=== PATIENT | male | born 1995 | race Caucasian/White ===

== ENCOUNTER 2016-12-27 14:20 | Emergency (ER) | payer OTHER ==
[2016-12-27 14:39] VITALS: BP 185/93
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
== END 2016-12-27 15:40 | disposition home or self-care (01) ==
LOC: KA.ED 14:20
DX: S80.01XA Contusion of right knee, initial encounter (principal); Z91.030 Bee allergy status; V43.52XA Car driver injured in collision with other type car in traffic accident, initial encounter; Y92.488 Other paved roadways as the place of occurrence of the external cause
CPT/HCPCS: 73562-RT; 99284

== ENCOUNTER 2019-01-06 18:37 | Emergency (ER) | payer SELFPAY ==
--- NOTE | 2019-01-06 18:57 | EDM.PDOC ---
ED HPI GENERAL MEDICAL PROBLEM - General Chief Complaint: General Stated Complaint: HIGH FEVER, COUGH Time Seen by Provider: 01/06/19 18:49 Source of Information: Reports: Patient History Limitations: Reports: No Limitations - History of Present Illness INITIAL COMMENTS - FREE TEXT/NARRATIVE: Patient is a 23-year-old gentleman who presents to the emergency department this evening with a complaint of fever and cough. Patient states that symptoms began 2 days ago and has become worse. Patient states that the cough is productive for thick yellow sputum and complains of a sore throat. Patient denies chest pain, shortness of breath, headache, stiff neck, nausea, vomiting, diarrhea, and also specific contact with sick individuals, Onset: Gradual Onset Date: 01/04/19 Duration: Day(s):, Getting Worse Severity: Mild Improves with: Reports: None Worsens with: Reports: None Associated Symptoms: Reports: Cough, cough w sputum, Fever/Chills. 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 - Related Data Allergies Allergy/AdvReac Type Severity Reaction Status Date / Time No Known Drug Allergies Allergy Cannot Verified 01/06/19 19:01 Remember venom-honey bee Allergy Swelling Verified 01/06/19 19:01 [bee venom (honey bee)] Home Meds: Home Meds Azithromycin [Zithromax] 500 mg PO DAILY #4 tab 01/06/19 [Rx] Lisinopril 20 mg PO DAILY 01/06/19 [History] Past Medical History - Past Health History Medical/Surgical History: Denies Medical/Surgical History Cardiovascular History: Reports: Hypertension Respiratory History: Reports: Asthma, Other (See Below) Other Respiratory History: Asthma when young Gastrointestinal History: Reports: None Genitourinary History: Reports: None Musculoskeletal History: Reports: Gout Neurological History: Reports: Concussion Psychiatric History: Reports: None Endocrine/Metabolic History: Reports: Obesity/BMI 30+ Hematologic History: Reports: None Dermatologic History: Reports: None - Infectious Disease History Infectious Disease History: Reports: Chicken Pox - Past Surgical History Cardiovascular Surgical History: Reports: None Respiratory Surgical History: Reports: None GI Surgical History: Reports: Hernia Repair/Other Male Surgical History: Reports: None Endocrine Surgical History: Reports: None Neurological Surgical History: Reports: None Musculoskeletal Surgical History: Reports: Other (See Below) Other Musculoskeletal Surgeries/Procedures:: tighten muscles on right knee Dermatological Surgical History: Reports: None Social & Family History - Family History Family Medical History: Noncontributory - Caffeine Use Caffeine Use: Reports: Coffee, Soda - Living Situation & Occupation Living situation: Reports: Single Occupation: Student ED ROS GENERAL - Review of Systems Review Of Systems: ROS reveals no pertinent complaints other than HPI. Constitutional: Reports: Fever, Chills HEENT: Reports: Throat Pain Respiratory: Reports: Cough, Sputum Cardiovascular: Reports: No Symptoms Endocrine: Reports: No Symptoms GI/Abdominal: Reports: No Symptoms : Reports: No Symptoms Musculoskeletal: Reports: No Symptoms Skin: Reports: No Symptoms Neurological: Reports: No Symptoms Psychiatric: Reports: No Symptoms Hematologic/Lymphatic: Reports: No Symptoms Immunologic: Reports: No Symptoms ED EXAM, GENERAL - Physical Exam Exam: See Below Exam Limited By: No Limitations General Appearance: Alert, WD/WN, No Apparent Distress Eye Exam: Bilateral Eye: Normal Inspection Ears: Normal External Exam, Normal Canal, Normal TMs Nose: Normal Inspection, Normal Mucosa, No Blood Throat/Mouth: No Airway Compromise, Inflammation, Other (Pharyngeal erythema without exudates) Neck: Lymphadenopathy (L), Lymphadenopathy (R) Respiratory/Chest: No Respiratory Distress, Lungs Clear, Normal Breath Sounds Cardiovascular: No Murmur, Tachycardia GI/Abdominal: Normal Bowel Sounds, Soft, Non-Tender, No Organomegaly, No Distention, No Abnormal Bruit, No Mass Back Exam: Normal Inspection. No: CVA Tenderness (L), CVA Tenderness (R) Extremities: Normal Inspection Neurological: Alert, Oriented, Normal Cognition Psychiatric: Normal Affect, Normal Mood Skin Exam: Warm, Dry, Intact, Normal Color, No Rash Lymphatic: Adenopathy Course - Vital Signs Last Recorded V/S: Last Vital Signs Temp 100.8 F H 01/06/19 19:50 Pulse 108 H 01/06/19 19:50 Resp 16 01/06/19 19:50 BP 140/84 01/06/19 19:50 Pulse Ox 91 L 01/06/19 19:50 - Orders/Labs/Meds Orders: Active Orders 24 hr Category Date Time Status Peripheral IV Care [RC] . DIRECTED Care 01/06/19 18:58 Ordered Sodium Chloride 0.9% @ 999 MLS/HR (1000ml) Med 01/06/19 18:58 Ordered Sodium Chloride 0.9% [Normal Saline] 1,000 ml IV .BOLUS Sodium Chloride 0.9% [Saline Flush] Med 01/06/19 18:58 Ordered 10 ml FLUSH Q8HR PRN Peripheral IV Insertion Adult [OM.PC] Routine Oth 01/06/19 18:58 Ordered Medication Orders Sodium Chloride (Normal Saline) 1,000 mls @ 999 mls/hr IV .BOLUS ONE Stop: 01/06/19 19:58 Last Admin: 01/06/19 19:07 Dose: 999 mls/hr Sodium Chloride (Saline Flush) 10 ml FLUSH Q8HR PRN PRN Reason: keep vein open Labs: Laboratory Tests 01/06/19 01/06/19 Range/Units 18:59 18:59 WBC 7.92 (5.00-10.00) 10^3/uL RBC 5.07 (4.50-6.00) 10^6/uL Hgb 15.7 (13.0-17.0) g/dL Hct 44.7 (40.0-52.0) % MCV 88.2 (82.0-92.0) fL MCH 31.0 (27.0-31.0) pg MCHC 35.1 (32.0-36.0) g/dL RDW 11.5 (11.5-14.5) % Plt Count 245 (150-400) 10^3/uL MPV 10.7 H (7.4-10.4) fL Immature Gran % (Auto) 0.1 (0.0-5.0) % Neut % (Auto) 64.8 (50.0-70.0) % Lymph % (Auto) 20.7 (20.0-40.0) % Andrews % (Auto) 11.0 H (2.0-8.0) % Eos % (Auto) 3.0 (1.0-3.0) % Baso % (Auto) 0.4 (0.0-1.0) % Immature Gran # (Auto) 0.01 (0.00-0.50) 10^3/uL Neut # (Auto) 5.13 (2.50-7.00) 10^3/uL Lymph # (Auto) 1.64 (1.00-4.00) 10^3/uL Andrews # (Auto) 0.87 H (0.10-0.80) 10^3/uL Eos # (Auto) 0.24 (0.10-0.30) 10^3/uL Baso # (Auto) 0.03 (0.00-0.10) 10^3/uL Sodium 135 L (136-145) mmol/L Potassium 4.0 (3.3-5.3) mmol/L Chloride 98 (98-115) mmol/L Carbon Dioxide 27.8 (21.0-32.0) mmol/L Anion Gap 13.2 (5-15) mmol/L BUN 12 (6-25) mg/dL Creatinine 0.91 (0.51-1.17) mg/dL Est Cr Clr Drug Dosing 117.03 mL/min Estimated GFR (MDRD) > 60 mL/min Glucose 107 H (75 - 99) mg/dL Calcium 9.4 (8.7-10.3) mg/dL Monoscreen Negative (NEGATIVE) Meds: Medications Generic Name Dose Route Start Last Admin Trade Name Freq PRN Reason Stop Dose Admin Sodium Chloride 1,000 mls @ 999 mls/hr 01/06/19 18:58 01/06/19 19:07 Normal Saline IV 01/06/19 19:58 999 mls/hr .BOLUS ONE Administration Sodium Chloride 10 ml 01/06/19 18:58 Saline Flush FLUSH Q8HR PRN keep vein open Discontinued Medications Generic Name Dose Route Start Last Admin Trade Name Freq PRN Reason Stop Dose Admin Azithromycin 500 mg 01/06/19 19:42 Zithromax PO 01/06/19 19:43 ONETIME ONE Ceftriaxone Sodium 1 gm 01/06/19 19:42 Rocephin IVPUSH 01/06/19 19:43 ONETIME ONE Ibuprofen 600 mg 01/06/19 18:58 01/06/19 19:07 Motrin PO 01/06/19 18:59 600 mg ONETIME ONE Administration - Radiology Interpretation Free Text/Narrative:: Chest x-ray shows suspicion for infiltrate of right lower lobe - Re-Assessments/Exams Free Text/Narrative Re-Assessment/Exam: 01/06/19 19:50 Patient feeling better, temperature down to 100, vital signs stable, 1 g Rocephin IV, 500 mg Zithromax given in ER. Prescription for Zithromax 500 mg daily for 2 more days given. Patient will follow-up with PCP in 2 days Departure - Departure Time of Disposition: 19:49 Disposition: Home, Self-Care 01 Condition: Good Clinical Impression: Fever Qualifiers: Fever type: unspecified Qualified Code(s): R50.9 - Fever, unspecified Pneumonia Qualifiers: Pneumonia type: due to unspecified organism Laterality: right Lung location: lower lobe of lung Qualified Code(s): J18.1 - Lobar pneumonia, unspecified organism - Discharge Information Prescriptions: Azithromycin [Zithromax] 500 mg PO DAILY #4 tab Instructions: Fever, Adult, Community-Acquired Pneumonia, Adult, [id number] Referrals: Diane Porras MD [Primary Care Provider] - Forms: ED Department Discharge Additional Instructions: Follow-up at clinic in next 2-3 days. Return to the emergency department sooner if symptoms continue or worsen. - My Orders Last 24 Hours: My Active Orders 01/06/19 18:58 Peripheral IV Care [RC] . DIRECTED Sodium Chloride 0.9% @ 999 MLS/HR (1000ml) Sodium Chloride 0.9% [Normal Saline] 1,000 ml IV .BOLUS Sodium Chloride 0.9% [Saline Flush] 10 ml FLUSH Q8HR PRN Peripheral IV Insertion Adult [OM.PC] Routine - Assessment/Plan Last 24 Hours: My Active Orders 01/06/19 18:58 Peripheral IV Care [RC] . DIRECTED Sodium Chloride 0.9% @ 999 MLS/HR (1000ml) Sodium Chloride 0.9% [Normal Saline] 1,000 ml IV .BOLUS Sodium Chloride 0.9% [Saline Flush] 10 ml FLUSH Q8HR PRN Peripheral IV Insertion Adult [OM.PC] Routine Assessment:: Pneumonia Plan: Follow-up with PCP in 2 days
[2019-01-06] MEDS ORDERED: Ibuprofen 600 MG Tab PO ONE (18:58)
[2019-01-06] MEDS ORDERED: Sodium Chloride 0.9% 1,000 ML IV ONE (18:58)
[2019-01-06] MEDS ORDERED: Sodium Chloride 0.9% 10 ML Syringe FLUSH PRN (18:58)
[2019-01-06 19:36] LABS: ANION GAP 13.2 mmol/L (5-15); CHLORIDE,CL 98 mmol/L (98-115); SODIUM,NA 135 mmol/L (136-145)
[2019-01-06] MEDS ORDERED: Azithromycin 250 MG Tab PO ONE (19:42)
[2019-01-06] MEDS ORDERED: cefTRIAXone 1 GM Vial IVPUSH ONE (19:42)
--- NOTE | 2019-01-06 19:45 | CR ---
[id number] RAD/RAD Chest PA And Lateral EXAM: RAD Chest PA And Lateral INDICATION: URI COMPARISON: July 2018. DISCUSSION: Cardiomediastinal silhouette is stable in size and contour. No infiltrate, effusion, pneumothorax, or edema. IMPRESSION: Negative examination of the chest. Kermit Jimenez MD 01/06/19 1943 Thank you for allowing us to participate in the care of your patient.
[2019-01-06 19:53] VITALS: BP 140/84
== END 2019-01-06 20:30 | disposition home or self-care (01) ==
LOC: KA.ED 18:37
DX: J18.1 Lobar pneumonia, unspecified organism (principal); I10 Essential (primary) hypertension; Z79.899 Other long term (current) drug therapy; Z91.030 Bee allergy status
CPT/HCPCS: 36415; 71046; 80048; 85025; 86308; 87804; 96361; 96374; 99283; 99283-25; A9270-GY; J0696; J7030

== ENCOUNTER 2019-05-10 01:26 | Emergency (ER) | payer BC ==
[2019-05-10 01:31] VITALS: BP 155/87; PULSE 111
[2019-05-10] MEDS ORDERED: Oxymetazoline 0.05% Nasal Spray 15 ML Bottle NAS ONE (01:40)
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
== END 2019-05-10 02:35 | disposition home or self-care (01) ==
LOC: KA.ED 01:26
DX: R04.0 Epistaxis (principal); I10 Essential (primary) hypertension; E66.9 Obesity, unspecified; Z79.899 Other long term (current) drug therapy; Z91.030 Bee allergy status
CPT/HCPCS: 99283; A9270

== ENCOUNTER 2019-05-16 14:32 | Emergency (ER) | payer BC ==
[2019-05-16 14:44] VITALS: BP 151/74; PULSE 84
[2019-05-16] MEDS ORDERED: methylPREDNISolone Sodium Succinate 125 MG/2 ML SDV IM ONE (14:45)
[2019-05-16] MEDS ORDERED: Acyclovir 400 MG Tab PO ONE ×2 (14:45→14:47)
--- NOTE | 2019-05-16 14:53 | EDM.PDOC ---
ED HPI GENERAL MEDICAL PROBLEM - General Chief Complaint: General Stated Complaint: RASH ON BACK AND LEGS Time Seen by Provider: 05/16/19 14:45 Source of Information: Reports: Patient History Limitations: Reports: No Limitations - History of Present Illness INITIAL COMMENTS - FREE TEXT/NARRATIVE: Patient is a 23-year-old gentleman who presents to the emergency department this afternoon with a complaint of rash to right lower back and right thigh. Patient states that it's been going on for about 4-5 days. Patient states he noticed it when he went to the chiropractor a few days ago. Rash is gradually worsening and is very itchy. Patient denies any similar rash like this in the past, fever, immunocompromise status, shortness of breath, tongue swelling, testicular or penile involvement, or any recent medication changes. Onset: Gradual Duration: Day(s): Location: Reports: Back, Lower Extremity, Right Quality: Reports: Burning Severity: Mild Improves with: Reports: None Worsens with: Reports: None Associated Symptoms: Reports: No Other Symptoms. Denies: Fever/Chills, Nausea/ Vomiting - Related Data Allergies Allergy/AdvReac Type Severity Reaction Status Date / Time No Known Drug Allergies Allergy Cannot Verified 05/16/19 14:38 Remember venom-honey bee Allergy Swelling Verified 05/16/19 14:38 [bee venom (honey bee)] Home Meds: Home Meds Lisinopril 20 mg PO DAILY 01/06/19 [History] Acyclovir 800 mg PO TID #21 tablet 05/16/19 [Rx] Past Medical History - Past Health History Medical/Surgical History: Denies Medical/Surgical History Cardiovascular History: Reports: Hypertension Respiratory History: Reports: Asthma, Other (See Below) Other Respiratory History: Asthma when young Gastrointestinal History: Reports: None Genitourinary History: Reports: None Musculoskeletal History: Reports: Gout Neurological History: Reports: Concussion Psychiatric History: Reports: None Endocrine/Metabolic History: Reports: Obesity/BMI 30+ Hematologic History: Reports: None Oncologic (Cancer) History: Reports: None Dermatologic History: Reports: None - Infectious Disease History Infectious Disease History: Reports: Chicken Pox, Shingles - Past Surgical History Head Surgeries/Procedures: Reports: None Cardiovascular Surgical History: Reports: None Respiratory Surgical History: Reports: None GI Surgical History: Reports: Hernia Repair/Other Male Surgical History: Reports: None Endocrine Surgical History: Reports: None Neurological Surgical History: Reports: None Musculoskeletal Surgical History: Reports: Other (See Below) Other Musculoskeletal Surgeries/Procedures:: tighten muscles on right knee Dermatological Surgical History: Reports: None Social & Family History - Family History Family Medical History: Noncontributory - Tobacco Use Smoking Status *Q: Never Smoker - Caffeine Use Caffeine Use: Reports: None - Recreational Drug Use Recreational Drug Use: No - Living Situation & Occupation Living situation: Reports: Single Occupation: Student ED ROS GENERAL - Review of Systems Review Of Systems: ROS reveals no pertinent complaints other than HPI. Constitutional: Reports: No Symptoms. Denies: Fever HEENT: Reports: No Symptoms Respiratory: Reports: No Symptoms Cardiovascular: Reports: No Symptoms Endocrine: Reports: No Symptoms GI/Abdominal: Reports: No Symptoms : Reports: No Symptoms Musculoskeletal: Reports: No Symptoms Skin: Reports: Rash Neurological: Reports: No Symptoms Psychiatric: Reports: No Symptoms Hematologic/Lymphatic: Reports: No Symptoms Immunologic: Reports: No Symptoms ED EXAM, GENERAL - Physical Exam Exam: See Below Exam Limited By: No Limitations General Appearance: Alert, WD/WN, No Apparent Distress Eye Exam: Bilateral Eye: Normal Inspection Ears: Normal External Exam Nose: Normal Inspection Throat/Mouth: Normal Inspection, Normal Oropharynx, No Airway Compromise Head: Atraumatic, Normocephalic Neck: Normal Inspection, Supple. No: Lymphadenopathy (L), Lymphadenopathy (R) Respiratory/Chest: No Respiratory Distress, Lungs Clear, Normal Breath Sounds, No Accessory Muscle Use, Chest Non-Tender Cardiovascular: Regular Rate, Rhythm, No Murmur Back Exam: Normal Inspection Extremities: Normal Inspection Neurological: Alert, Oriented, Normal Cognition Psychiatric: Normal Affect, Normal Mood Skin Exam: Warm, Dry, Intact, Normal Color, Rash (Right lower back and right anterior thigh with red swollen plaques, erythematous base of vesicle groups varying in size with some crusting.), Zoster-Like Rash Lymphatic: No Adenopathy Course - Vital Signs Last Recorded V/S: Last Vital Signs Temp 98.9 F 05/16/19 14:43 Pulse 84 05/16/19 14:43 Resp 16 05/16/19 14:43 BP 151/74 H 05/16/19 14:43 Pulse Ox 98 05/16/19 14:43 - Orders/Labs/Meds Orders: Active Orders 24 hr Category Date Time Status Acyclovir [Zovirax] Med 05/16/19 14:47 Once 3,200 mg PO ONETIME ONE Meds: Medications Discontinued Medications Generic Name Dose Route Start Last Admin Trade Name Oswaldo ABREU Reason Stop Dose Admin Acyclovir 800 mg 05/16/19 14:45 Zovirax PO 05/16/19 14:46 ONETIME ONE Methylprednisolone Sodium Succinate 125 mg 05/16/19 14:45 Solu-Medrol IM 05/16/19 14:46 ONETIME ONE - Re-Assessments/Exams Free Text/Narrative Re-Assessment/Exam: 05/16/19 14:56 Patient afebrile, vital signs stable, appears nontoxic. Patient given 125 mg IM Solu-Medrol, and 800 mg acyclovir in the emergency department. Patient will be continued on 800 mg acyclovir 3 times a day for 7 days. Departure - Departure Time of Disposition: 14:58 Disposition: Home, Self-Care 01 Condition: Good Clinical Impression: Herpes zoster Qualifiers: Herpes zoster complications: without complications Qualified Code(s): B02.9 - Zoster without complications - Discharge Information Instructions: Shingles, [id number] Referrals: PCP,None [Primary Care Provider] - Merry Leong PA-C [Physician] - Additional Instructions: Follow up with Merry in 3-5 days. Return to emergency room sooner if symptoms continue or worsen. Take medication as directed. - My Orders Last 24 Hours: My Active Orders 05/16/19 14:47 Acyclovir [Zovirax] 3,200 mg PO ONETIME ONE - Assessment/Plan Last 24 Hours: My Active Orders 05/16/19 14:47 Acyclovir [Zovirax] 3,200 mg PO ONETIME ONE Assessment:: Herpes zoster Plan: Follow-up at clinic
== END 2019-05-16 15:02 | disposition home or self-care (01) ==
LOC: KA.ED 14:32
DX: B02.9 Zoster without complications (principal); I10 Essential (primary) hypertension; E66.9 Obesity, unspecified; Z79.899 Other long term (current) drug therapy; Z91.030 Bee allergy status
CPT/HCPCS: 96372; 99282; A9270; J2930

== ENCOUNTER 2019-06-19 09:49 | Emergency (ER) | payer BC ==
[2019-06-19 10:01] VITALS: BP 155/86
[2019-06-19] MEDS: Lidocaine 1% 20 ML MDV INJECT ONE (10:40)
--- NOTE | 2019-06-19 10:56 | EDM.PDOC ---
ED HPI GENERAL MEDICAL PROBLEM - General Chief Complaint: General Stated Complaint: CUT FINGER Time Seen by Provider: 06/19/19 10:50 Source of Information: Reports: Patient History Limitations: Reports: No Limitations - History of Present Illness INITIAL COMMENTS - FREE TEXT/NARRATIVE: Patient is a 23-year-old gentleman who presents to the emergency department this afternoon with a complaint of laceration to left thumb. Patient states he accidentally cut left thumb on sharp piece of glass. No glass fragmentation or suspicion for foreign body. Patient denies any other injury. Patient is not up -to-date with tetanus and will receive today in the ER. Onset: Today, Sudden Onset Date: 06/19/19 Onset Time: 09:30 Duration: Minutes: Location: Reports: Upper Extremity, Left Severity: Mild Improves with: Reports: None Worsens with: Reports: None Context: Reports: Trauma Associated Symptoms: Reports: No Other Symptoms - Related Data Allergies Allergy/AdvReac Type Severity Reaction Status Date / Time venom-honey bee Allergy Swelling Verified 06/19/19 10:02 [bee venom (honey bee)] Home Meds: Home Meds Lisinopril 20 mg PO DAILY 01/06/19 [History] Past Medical History - Past Health History Medical/Surgical History: Denies Medical/Surgical History Cardiovascular History: Reports: Hypertension Respiratory History: Reports: Asthma, Other (See Below) Other Respiratory History: Asthma when young Gastrointestinal History: Reports: None Genitourinary History: Reports: None Musculoskeletal History: Reports: Gout Neurological History: Reports: Concussion Psychiatric History: Reports: None Endocrine/Metabolic History: Reports: Obesity/BMI 30+ Hematologic History: Reports: None Oncologic (Cancer) History: Reports: None Dermatologic History: Reports: None - Infectious Disease History Infectious Disease History: Reports: Chicken Pox, Shingles - Past Surgical History Head Surgeries/Procedures: Reports: None Cardiovascular Surgical History: Reports: None Respiratory Surgical History: Reports: None GI Surgical History: Reports: Hernia Repair/Other Male Surgical History: Reports: None Endocrine Surgical History: Reports: None Neurological Surgical History: Reports: None Musculoskeletal Surgical History: Reports: Other (See Below) Other Musculoskeletal Surgeries/Procedures:: tighten muscles on right knee Dermatological Surgical History: Reports: None Social & Family History - Family History Family Medical History: Noncontributory - Tobacco Use Smoking Status *Q: Never Smoker Second Hand Smoke Exposure: Yes - Caffeine Use Caffeine Use: Reports: Coffee, Soda, Tea - Alcohol Use Days Per Week of Alcohol Use: 1 Number of Drinks Per Day: 3 Total Drinks Per Week: 3 - Recreational Drug Use Recreational Drug Use: No - Living Situation & Occupation Living situation: Reports: Single Occupation: Student ED ROS GENERAL - Review of Systems Review Of Systems: ROS reveals no pertinent complaints other than HPI. Constitutional: Reports: No Symptoms HEENT: Reports: No Symptoms Respiratory: Reports: No Symptoms Cardiovascular: Reports: No Symptoms Endocrine: Reports: No Symptoms GI/Abdominal: Reports: No Symptoms : Reports: No Symptoms Musculoskeletal: Reports: No Symptoms Skin: Reports: Wound (Left thumb) Neurological: Reports: No Symptoms Psychiatric: Reports: No Symptoms Hematologic/Lymphatic: Reports: No Symptoms Immunologic: Reports: No Symptoms ED EXAM, GENERAL - Physical Exam Exam: See Below Exam Limited By: No Limitations General Appearance: Alert, WD/WN, No Apparent Distress Throat/Mouth: Normal Inspection, Normal Oropharynx, No Airway Compromise Head: Atraumatic, Normocephalic Neck: Normal Inspection Respiratory/Chest: No Respiratory Distress Extremities: Normal Inspection Neurological: Alert, Oriented, Normal Cognition Psychiatric: Normal Affect, Normal Mood Skin Exam: Wound/Incision (2 cm laceration to the MIP of the first digit. No tendon involvement, extension or flexion deficit) ED GENERAL MEDICAL PROCEDURES - Laceration/Wound Repair Left Dorsal Digit - 1st (Thumb) Lac/wound length in cm: 2 Appearance: Superficial Distal NVT: No Tendon Injury Anesthetic Type: Local Local Anesthesia - Lidocaine (Xylocaine): 1% Plain Local Anesthetic Volume: 2cc Skin Prep: Providone-Iodine (Betadine) Closed with: Sutures Suture Size: 4-0 # of Sutures: 3 Suture Type: Interrupted Sterile Dressing Applied: Nurse Tetanus Status Addressed: Yes Complications: No Course - Vital Signs Last Recorded V/S: Last Vital Signs Temp 99.1 F 06/19/19 09:57 Pulse 92 06/19/19 09:57 Resp 20 06/19/19 09:57 BP 155/86 H 06/19/19 09:57 Pulse Ox 95 06/19/19 09:57 - Orders/Labs/Meds Meds: Medications Discontinued Medications Generic Name Dose Route Start Last Admin Trade Name Freq PRN Reason Stop Dose Admin Lidocaine HCl Confirm 06/19/19 10:37 Xylocaine 1% Administered 06/19/19 10:38 Dose 20 ml .ROUTE .STK-MED ONE - Re-Assessments/Exams Free Text/Narrative Re-Assessment/Exam: 06/19/19 10:56 Patient afebrile, vital signs stable, tolerated procedure well. Patient will follow-up with PCP in 10 days for suture removal Departure - Departure Time of Disposition: 10:57 Disposition: Home, Self-Care 01 Condition: Good Clinical Impression: Finger laceration Qualifiers: Encounter type: initial encounter Finger: thumb Damage to nail status: without damage Foreign body presence: without foreign body Laterality: left Qualified Code(s): S61.012A - Laceration without foreign body of left thumb without damage to nail, initial encounter - Discharge Information Instructions: Sutured Wound Care, [id number], Stitches, Yvon, or Adhesive Wound Closure, [id number] Referrals: Diane Porras MD [Primary Care Provider] - Additional Instructions: Follow-up at the clinic in 10 days for suture removal. Return to the emergency department sooner if symptoms continue or worsen. - Assessment/Plan Assessment:: Left thumb laceration repair Plan: Follow-up with PCP
[2019-06-19] MEDS: Diphtheria,Pertussis(Acell),Tetanus Vaccine 0.5 ML SDV IM ONE (11:24)
[2019-06-19] MEDS: Bacitracin/Neomycin/Polymyxin B Oint 0.9 GM U/D Packet ONE (11:26)
[2019-06-19] MEDS: Lidocaine 1% 20 ML MDV ONE (11:26)
== END 2019-06-19 11:10 | disposition home or self-care (01) ==
LOC: KA.ED 09:49
DX: S61.012A Laceration without foreign body of left thumb without damage to nail, initial encounter (principal); I10 Essential (primary) hypertension; Z91.030 Bee allergy status; Z79.899 Other long term (current) drug therapy; Z23 Encounter for immunization; W25.XXXA Contact with sharp glass, initial encounter
CPT/HCPCS: 12001; 90471; 90715; 99282; J2001

== ENCOUNTER 2019-07-05 13:39 | Emergency (ER) | payer BC ==
--- NOTE | 2019-07-05 13:46 | EDM.PDOC ---
ED HPI GENERAL MEDICAL PROBLEM - General Chief Complaint: Lower Extremity Injury/Pain Stated Complaint: LEFT ANKLE PAIN Time Seen by Provider: 07/05/19 13:46 Source of Information: Reports: Patient History Limitations: Reports: No Limitations - History of Present Illness Onset: Gradual Onset Date: 07/04/19 Onset Time: 20:30 Duration: Hour(s): Location: Reports: Lower Extremity, Left Quality: Reports: Burning Severity: Moderate Improves with: Reports: Rest Worsens with: Reports: Movement Context: Reports: Activity Associated Symptoms: Reports: No Other Symptoms Treatments WELT SEWER: Reports: Home Treatments (Use of crutches), Splint(s) (Use of crutches) LEFT ANKLE Pain Score (Numeric/FACES): 6 - Related Data Allergies Allergy/AdvReac Type Severity Reaction Status Date / Time venom-honey bee Allergy Swelling Verified 07/05/19 13:55 [bee venom (honey bee)] Home Meds: Home Meds Lisinopril 20 mg PO DAILY 01/06/19 [History] Past Medical History - Past Health History Medical/Surgical History: Denies Medical/Surgical History Cardiovascular History: Reports: Hypertension Respiratory History: Reports: Asthma, Other (See Below) Other Respiratory History: Asthma when young Gastrointestinal History: Reports: None Genitourinary History: Reports: None Musculoskeletal History: Reports: Gout Neurological History: Reports: Concussion Psychiatric History: Reports: None Endocrine/Metabolic History: Reports: Obesity/BMI 30+ Hematologic History: Reports: None Oncologic (Cancer) History: Reports: None Dermatologic History: Reports: None - Infectious Disease History Infectious Disease History: Reports: Chicken Pox, Shingles - Past Surgical History Head Surgeries/Procedures: Reports: None Cardiovascular Surgical History: Reports: None Respiratory Surgical History: Reports: None GI Surgical History: Reports: Hernia Repair/Other Male Surgical History: Reports: None Endocrine Surgical History: Reports: None Neurological Surgical History: Reports: None Musculoskeletal Surgical History: Reports: Other (See Below) Other Musculoskeletal Surgeries/Procedures:: tighten muscles on right knee Dermatological Surgical History: Reports: None Social & Family History - Family History Family Medical History: Noncontributory - Caffeine Use Caffeine Use: Reports: Coffee, Soda, Tea - Living Situation & Occupation Living situation: Reports: Single Occupation: Student Review of Systems - Review of Systems Review Of Systems: See Below Constitutional: Reports: No Symptoms Eyes: Reports: No Symptoms Ears: Reports: No Symptoms Nose: Reports: No Symptoms Mouth/Throat: Reports: No Symptoms Respiratory: Reports: No Symptoms Cardiovascular: Reports: No Symptoms GI/Abdominal: Reports: No Symptoms Genitourinary: Reports: No Symptoms Musculoskeletal: Reports: No Symptoms Skin: Reports: No Symptoms Neurological: Reports: No Symptoms Psychiatric: Reports: No Symptoms ED EXAM, GENERAL - Physical Exam Exam: See Below Free Text/Narrative:: [place] ambulating last evening at roughly 2030 hrs. was walking on a incline downward where he stepped off the side rolling his ankle laterally with eversion motion. Had mild pain at the time but was able to ambulate the rest of the evening. Upon awakening this morning noted increased swelling with pain to the lateral aspect of the malleolus of the left ankle. Alert oriented in mild distress using crutches to ambulate to the department. He denies any other complaints or injuries. HEENT is benign to discharge or deformity. Thorax clear with no demonstrated respiratory distress. Pulses are regular. Focused examination to the left ankle reveals lateral edematous presentation with tenderness to the base of the malleolus. There is no tenderness to the medial aspect to the tibia. No pain to the distal fibula shaft. Capillary refill is intact dorsalis pedis posterior tibialis intact. X-ray reviewed showing soft tissue with no acute fracture or dislocation. Sprain left ankle Jeronimo wrap and continued use of crutches with recheck as needed General Appearance: Alert, WD/WN, No Apparent Distress Course - Vital Signs Last Recorded V/S: Last Vital Signs Temp 37.1 C 07/05/19 13:45 Pulse 98 07/05/19 13:45 Resp 16 07/05/19 13:45 BP 163/87 H 07/05/19 13:45 Pulse Ox 97 07/05/19 13:45 Departure - Departure Time of Disposition: 14:23 Disposition: Home, Self-Care 01 Condition: Good Clinical Impression: Left ankle sprain Qualifiers: Encounter type: initial encounter - Discharge Information *PRESCRIPTION DRUG MONITORING PROGRAM REVIEWED*: Not Applicable *COPY OF PRESCRIPTION DRUG MONITORING REPORT IN PATIENT CADY: Not Applicable Instructions: Ankle Sprain, [id number] Referrals: Merry Leong PA-C [Primary Care Provider] - Forms: ED Department Discharge Additional Instructions: Continue to use of your crutches. Limit any weightbearing for the next 24 hours. Use Jeronimo wrap improved stability as well as control swelling. Ice elevate at least 20 minutes 3 times daily. Avoid climbing ladders, stairs, and standing on stools or elevated platforms that are not stable. Recheck if not improving or worsening - Problem List & Annotations (1) Left ankle sprain SNOMED Code(s): 39391547, [id number] Code(s): S93.402A - SPRAIN OF UNSPECIFIED LIGAMENT OF LEFT ANKLE, INIT ENCNTR Status: Acute Priority: High Qualifiers: Encounter type: initial encounter - Problem List Review Problem List Initiated/Reviewed/Updated: Yes - Assessment/Plan Plan: Continue to use of your crutches. Limit any weightbearing for the next 24 hours. Use Jeronimo wrap improved stability as well as control swelling. Ice elevate at least 20 minutes 3 times daily. Avoid climbing ladders, stairs, and standing on stools or elevated platforms that are not stable. Recheck if not improving or worsening
[2019-07-05 13:55] VITALS: BP 163/87; PULSE 98
--- NOTE | 2019-07-05 14:27 | CR ---
[id number] RAD/RAD Ankle Left 3V Min EXAM: 3 VIEWS LEFT ANKLE. INDICATION: ROLLED LT ANKLE. PAIN, SWELLING. COMPARISON: None. DISCUSSION: No fracture, dislocation or other acute osseous abnormality. Soft tissue edema adjacent to the lateral malleolus. Moderate left ankle joint effusion. Small plantar calcaneal spur. IMPRESSION: 1. Soft tissue edema adjacent to the lateral malleolus with a moderate left ankle joint effusion. No definite acute osseous abnormalities. Sammy Lentz DO 07/05/19 1426 Thank you for allowing us to participate in the care of your patient.
== END 2019-07-05 14:40 | disposition home or self-care (01) ==
LOC: KA.ED 13:39
DX: S93.402A Sprain of unspecified ligament of left ankle, initial encounter (principal); I10 Essential (primary) hypertension; E66.9 Obesity, unspecified; Z91.030 Bee allergy status; Z79.899 Other long term (current) drug therapy; Z68.42 Body mass index [BMI] 45.0-49.9, adult; X58.XXXA Exposure to other specified factors, initial encounter
CPT/HCPCS: 73610-LT; 99283-25

== ENCOUNTER 2020-02-13 14:52 | Emergency (ER) | payer BC, OTHER ==
[2020-02-13 15:01] VITALS: BP 180/60; PULSE 107
[2020-02-13] MEDS ORDERED: Sodium Chloride 0.9% 10 ML Syringe FLUSH PRN (15:05)
[2020-02-13] MEDS ORDERED: Sodium Chloride 0.9% 1,000 ML IV ONE (15:05)
--- NOTE | 2020-02-13 15:34 | EDM.PDOC ---
ED HPI GENERAL MEDICAL PROBLEM - General Chief Complaint: General Stated Complaint: Palpitations Time Seen by Provider: 02/13/20 15:00 Source of Information: Reports: Patient History Limitations: Reports: No Limitations - History of Present Illness INITIAL COMMENTS - FREE TEXT/NARRATIVE: 24 YO WM presents to ER complaining of palpitations and feeling lightheaded which began today. Pt reports he was eating lunch when he felt lightheaded and began to feel his heart racing. Pt reports symptoms improved but after walking home he began to experience these symptoms again prompting concern and ER evaluation. Pt reports PMH of hypertension. Pt unclear why he has hypertension at such an early age, but was started on lisinopril 3 years ago. Pt reports drinking 5 cups of coffee in am which he states is normal/daily for him. Pt recently (2weeks ago) started the Keto diet and states he's lost 3 lbs. Pt denies chest pain, shortness of breath, fever/chills, nausea/vomiting/diarrhea. Pt denies URI symptoms or any known COVID exposures. Pt reports eating and drinking well despite being on a diet. Onset: Today Duration: Hour(s): (1) Location: Reports: Chest Severity: Mild Improves with: Reports: None Worsens with: Reports: None Associated Symptoms: Reports: No Other Symptoms. Denies: Chest Pain, Cough, cough w sputum, Diaphoresis, Fever/Chills, Headaches, Loss of Appetite, Nausea/ Vomiting, Rash, Seizure, Shortness of Breath, Syncope, Weakness - Related Data Allergies Allergy/AdvReac Type Severity Reaction Status Date / Time venom-honey bee Allergy Swelling Verified 02/13/20 15:00 [bee venom (honey bee)] Home Meds: Home Meds Lisinopril 20 mg PO BEDTIME 01/06/19 [History] Past Medical History - Past Health History Medical/Surgical History: Denies Medical/Surgical History Cardiovascular History: Reports: Hypertension Respiratory History: Reports: Asthma, Other (See Below) Other Respiratory History: Asthma when young Gastrointestinal History: Reports: None Genitourinary History: Reports: None Musculoskeletal History: Reports: Gout Neurological History: Reports: Concussion Psychiatric History: Reports: None Endocrine/Metabolic History: Reports: Obesity/BMI 30+ Hematologic History: Reports: None Oncologic (Cancer) History: Reports: None Dermatologic History: Reports: None - Infectious Disease History Infectious Disease History: Reports: Chicken Pox, Shingles - Past Surgical History Head Surgeries/Procedures: Reports: None Cardiovascular Surgical History: Reports: None Respiratory Surgical History: Reports: None GI Surgical History: Reports: Hernia Repair/Other Male Surgical History: Reports: None Endocrine Surgical History: Reports: None Neurological Surgical History: Reports: None Musculoskeletal Surgical History: Reports: Other (See Below) Other Musculoskeletal Surgeries/Procedures:: tighten muscles on right knee Dermatological Surgical History: Reports: None Social & Family History - Family History Family Medical History: Noncontributory - Caffeine Use Caffeine Use: Reports: Coffee, Soda, Tea - Living Situation & Occupation Living situation: Reports: Single Occupation: Student ED ROS GENERAL - Review of Systems Review Of Systems: See Below Constitutional: Reports: No Symptoms HEENT: Reports: No Symptoms Respiratory: Reports: No Symptoms Cardiovascular: Reports: Blood Pressure Problem, Lightheadedness, Palpitations Endocrine: Reports: No Symptoms GI/Abdominal: Reports: No Symptoms : Reports: No Symptoms Musculoskeletal: Reports: No Symptoms Skin: Reports: No Symptoms Neurological: Reports: No Symptoms Psychiatric: Reports: No Symptoms Hematologic/Lymphatic: Reports: No Symptoms Immunologic: Reports: No Symptoms ED EXAM, GENERAL - Physical Exam Exam: See Below Exam Limited By: No Limitations General Appearance: Alert, WD/WN, No Apparent Distress Head: Atraumatic, Normocephalic Neck: Normal Inspection, Supple, Non-Tender, Full Range of Motion Respiratory/Chest: No Respiratory Distress, Lungs Clear, Normal Breath Sounds, No Accessory Muscle Use, Chest Non-Tender Cardiovascular: Normal Peripheral Pulses, Regular Rate, Rhythm, No Edema, No Gallop, No JVD, No Murmur, No Rub GI/Abdominal: Normal Bowel Sounds, Soft, Non-Tender, No Organomegaly, No Distention, No Abnormal Bruit, No Mass Back Exam: Normal Inspection, Full Range of Motion, NT Extremities: Normal Inspection, Normal Range of Motion, Non-Tender, Normal Capillary Refill, No Pedal Edema Neurological: Alert, Oriented, CN II-XII Intact, Normal Cognition, Normal Gait, Normal Reflexes, No Motor/Sensory Deficits Psychiatric: Normal Affect, Normal Mood Skin Exam: Warm, Dry, Intact, Normal Color, No Rash Lymphatic: No Adenopathy EKG INTERPRETATION EKG Date: 02/13/20 Time: 15:02 Rhythm: NSR Rate (Beats/Min): 111 Grayson: Normal P-Wave: Present QRS: Normal ST-T: Normal QT: Normal Comparison: NA - No Prior EKG Course - Vital Signs Last Recorded V/S: Last Vital Signs Temp 37.2 C 02/13/20 14:56 Pulse 107 H 02/13/20 14:56 Resp 16 02/13/20 14:56 BP 180/60 H 02/13/20 14:56 Pulse Ox 97 02/13/20 14:56 Orthostatic Blood Pressure [ 147/68 Standing] Orthostatic Blood Pressure [ 153/71 Sitting] Orthostatic Blood Pressure [ 145/66 Supine] - Orders/Labs/Meds Orders: Active Orders 24 hr Category Date Time Status EKG Documentation Completion [RC] ASDIRECTED Care 02/13/20 15:06 Active Peripheral IV Care [RC] . DIRECTED Care 02/13/20 15:06 Active Sodium Chloride 0.9% [Saline Flush] Med 02/13/20 15:05 Active 10 ml FLUSH Q8HR PRN Peripheral IV Insertion Adult [OM.PC] Routine Oth 02/13/20 15:05 Ordered EKG 12 Lead [EK] Stat Ther 02/13/20 15:05 Ordered Medication Orders Sodium Chloride (Saline Flush) 10 ml FLUSH Q8HR PRN PRN Reason: keep vein open Labs: Laboratory Tests 02/13/20 02/13/20 Range/Units 15:13 15:13 WBC 7.81 (5.00-10.00) 10^3/uL RBC 5.23 (4.50-6.00) 10^6/uL Hgb 16.0 (13.0-17.0) g/dL Hct 45.1 (40.0-52.0) % MCV 86.2 (82.0-92.0) fL MCH 30.6 (27.0-31.0) pg MCHC 35.5 (32.0-36.0) g/dL RDW 12.3 (11.5-14.5) % Plt Count 272 (150-400) 10^3/uL MPV 10.4 (7.4-10.4) fL Immature Gran % (Auto) 0.3 (0.0-5.0) % Neut % (Auto) 49.5 L (50.0-70.0) % Lymph % (Auto) 36.0 (20.0-40.0) % Sawyer % (Auto) 11.7 H (2.0-8.0) % Eos % (Auto) 1.7 (1.0-3.0) % Baso % (Auto) 0.8 (0.0-1.0) % Immature Gran # (Auto) 0.02 (0.00-0.50) 10^3/uL Neut # (Auto) 3.88 (2.50-7.00) 10^3/uL Lymph # (Auto) 2.81 (1.00-4.00) 10^3/uL Sawyer # (Auto) 0.91 H (0.10-0.80) 10^3/uL Eos # (Auto) 0.13 (0.10-0.30) 10^3/uL Baso # (Auto) 0.06 (0.00-0.10) 10^3/uL Sodium 140 (136-145) mmol/L Potassium 3.8 (3.3-5.3) mmol/L Chloride 102 (98-115) mmol/L Carbon Dioxide 25.6 (21.0-32.0) mmol/L Anion Gap 16.2 H (5-15) mmol/L BUN 19 (6-25) mg/dL Creatinine 0.86 (0.51-1.17) mg/dL Est Cr Clr Drug Dosing 118.49 mL/min Estimated GFR (MDRD) > 60 mL/min Glucose 94 (75 - 99) mg/dL Calcium 9.4 (8.7-10.3) mg/dL Total Bilirubin 0.4 (0.2-1.0) mg/dL AST 33 (15-37) U/L ALT 78 (12-78) U/L Alkaline Phosphatase 42 L (46-116) IU/L Total Protein 7.5 (6.4-8.2) g/dL Albumin 4.33 (3.00-4.80) g/dL TSH, Ultra Sensitive 0.530 (0.340-4.820) uIU/mL Meds: Medications Generic Name Dose Route Start Last Admin Trade Name Freq PRN Reason Stop Dose Admin Sodium Chloride 10 ml 02/13/20 15:05 Saline Flush FLUSH Q8HR PRN keep vein open Discontinued Medications Generic Name Dose Route Start Last Admin Trade Name Oswaldo PRN Reason Stop Dose Admin Sodium Chloride 1,000 mls @ 999 mls/hr 02/13/20 15:05 02/13/20 15:16 Normal Saline IV 02/13/20 16:05 999 mls/hr .BOLUS ONE Administration - Re-Assessments/Exams Free Text/Narrative Re-Assessment/Exam: 02/13/20 16:18 Pt reports no palpitation s while in ER. After 500cc NS bolus pt HR 80's; NAD Departure - Departure Time of Disposition: 16:17 Disposition: Home, Self-Care 01 Condition: Good Clinical Impression: Palpitations, Dehydration - Discharge Information Instructions: Palpitations, Dehydration, Adult, [id number] Referrals: Merry Leong PA-C [Primary Care Provider] - Forms: ED Department Discharge Additional Instructions: 1. discharge home 2. decrease caffeine intake 3. increase fluids 4. follow up with PCP for re-evaluation for hypertension 5. return to ER for worsening symptoms Sepsis Event Note - Evaluation Sepsis Screening Result: No Definite Risk - Focused Exam Vital Signs: Vital Signs Temp Pulse Resp BP Pulse Ox 02/13/20 14:56 37.2 C 107 H 16 180/60 H 97 Date Exam was Performed: 02/13/20 Time Exam was Performed: 16:12 - My Orders Last 24 Hours: My Active Orders 02/13/20 15:05 Sodium Chloride 0.9% [Saline Flush] 10 ml FLUSH Q8HR PRN Peripheral IV Insertion Adult [OM.PC] Routine EKG 12 Lead [EK] Stat 02/13/20 15:06 EKG Documentation Completion [RC] ASDIRECTED Peripheral IV Care [RC] . DIRECTED - Assessment/Plan Last 24 Hours: My Active Orders 02/13/20 15:05 Sodium Chloride 0.9% [Saline Flush] 10 ml FLUSH Q8HR PRN Peripheral IV Insertion Adult [OM.PC] Routine EKG 12 Lead [EK] Stat 02/13/20 15:06 EKG Documentation Completion [RC] ASDIRECTED Peripheral IV Care [RC] . DIRECTED Assessment:: 1. Palpitations 2. mild dehydrations Plan: 1. discharge home 2. decrease caffeine intake 3. increase fluids 4. follow up with PCP for re-evaluation for hypertension 5. return to ER for worsening symptoms
[2020-02-13 16:00] LABS: ANION GAP 16.2 mmol/L (5-15); CHLORIDE,CL 102 mmol/L (98-115); SODIUM,NA 140 mmol/L (136-145)
== END 2020-02-13 16:47 | disposition home or self-care (01) ==
LOC: KA.ED 14:52
DX: E86.0 Dehydration (principal); I10 Essential (primary) hypertension; E66.9 Obesity, unspecified; Z91.030 Bee allergy status; Z79.899 Other long term (current) drug therapy; Z68.41 Body mass index [BMI] 40.0-44.9, adult
CPT/HCPCS: 36415; 80053; 84443; 85025; 93005; 96360; 99285-25; J7030

== ENCOUNTER 2022-06-28 20:46 | Emergency (ER) | payer BC ==
[2022-06-28] MEDS: Lisinopril 20 MG Tab PO STA (21:06)
[2022-06-28] MEDS: Lisinopril 20 MG Tab ONE (21:06)
[2022-06-28 22:06] LABS: ANION GAP 10.8 mmol/L (5-15)
[2022-06-28 22:30] VITALS: BP 149/86; PULSE 84
== END 2022-06-28 22:40 | disposition home or self-care (01) ==
LOC: KA.ED 20:46
DX: R04.0 Epistaxis (principal); I16.0 Hypertensive urgency; I10 Essential (primary) hypertension; E66.9 Obesity, unspecified; Z68.42 Body mass index [BMI] 45.0-49.9, adult; Z91.030 Bee allergy status; Z79.899 Other long term (current) drug therapy
CPT/HCPCS: 36415; 80048; 84484; 85025; 93005; 93010; 99283; 99284; A9270-GY

== ENCOUNTER 2023-08-06 12:37 | Emergency (ER) | payer BC ==
[2023-08-06] MEDS ORDERED: Ibuprofen 600 MG Tab PO ONE (12:51)
[2023-08-06 14:22] VITALS: BP 145/83; PULSE 84
== END 2023-08-06 13:37 | disposition home or self-care (01) ==
LOC: KA.ED 12:37
DX: R07.1 Chest pain on breathing (principal)
CPT/HCPCS: 71046; 93010; 99284; 99285; A9270-GY

== ENCOUNTER 2024-09-02 11:44 | Emergency (ER) | payer BC ==
[2024-09-02 12:07] LABS: BASOPHILS ABSOLUTE AUTO 0.03 10^3/uL (0.00-0.10); BASOPHILS PERCENT AUTO 0.1 % (0.0-1.0); HEMATOCRIT 39.9 % (40.0-52.0); HEMOGLOBIN 13.8 g/dL (13.0-17.0); IMMATURE GRAN ABSOLUTE AUTO 1.51 10^3/uL (0.00-0.50); LYMPHOCYTES ABSOLUTE AUTO 1.19 10^3/uL (1.00-4.00); LYMPHOCYTES PERCENT AUTO 4.8 % (20.0-40.0); MEAN CORPUSCULAR HEMOGLOBIN 29.2 pg (27.0-31.0); MEAN CORPUSCULAR HGB CONC 34.6 g/dL (32.0-36.0); MEAN CORPUSCULAR VOLUME 84.5 fL (82.0-92.0); MEAN PLATELET VOLUME 10.7 fL (7.4-10.4); MONOCYTES ABSOLUTE AUTO 1.29 10^3/uL (0.10-0.80); MONOCYTES PERCENT AUTO 5.2 % (2.0-8.0); NEUTROPHILS ABSOLUTE AUTO 20.94 10^3/uL (2.50-7.00); NEUTROPHILS PERCENT AUTO 83.9 % (50.0-70.0); PLATELET COUNT,PLT 211 10^3/uL (150-400); RED BLOOD CELL COUNT 4.72 10^6/uL (4.50-6.00); RED CELL DISTRIBUTION WIDTH 12.4 % (11.5-14.5); WHITE BLOOD CELL COUNT,WBC 24.96 10^3/uL (5.00-10.00)
[2024-09-02 12:10] VITALS: BP 127/76; PULSE 131
[2024-09-02] MEDS: Sodium Chloride 0.9% 50 ML IV SCH (12:19)
[2024-09-02] MEDS: Iopamidol 755 Mg/ML 100 ML Bottle IV ONE (12:19)
[2024-09-02 12:26] LABS: ALANINE AMINOTRANSFERASE,ALT 72 U/L (14-63); ALBUMIN 2.23 g/dL (3.40-5.00); ALKALINE PHOSPHATASE 94 U/L (46-116); ASPARTATE AMNIOTRANSFERASE,AST 126 U/L (15-37); BILIRUBIN TOTAL 2.7 mg/dL (0.2-1.0); BLOOD UREA NITROGEN,BUN 31 mg/dL (7-18); CALCIUM 8.4 mg/dL (8.7-10.3); CARBON DIOXIDE,CO2 26.3 mmol/L (21.0-32.0); CREATININE 1.17 mg/dL (0.51-1.17); GLUCOSE RANDOM 128 mg/dL (70-140); POTASSIUM,K 3.3 mmol/L (3.5-5.1); PROTEIN TOTAL,TP 7.6 g/dL (6.4-8.2); SODIUM,NA 127 mmol/L (136-145)
[2024-09-02 12:27] LABS: ESTIMATED GFR 87 mL/min (>=60)
[2024-09-02 12:31] LABS: CHLORIDE,CL 88 mmol/L (98-107)
[2024-09-02] MEDS: Sodium Chloride 0.9% 1,000 ML IV ONE ×2 (12:32→14:12)
[2024-09-02] MEDS: cefTRIAXone 2 GM Vial IVPUSH ONE (13:00)
[2024-09-02] MEDS: Acetaminophen 500 MG Tab PO ONE (14:44)
== END 2024-09-02 14:50 ==
LOC: KA.ED 11:44
DX: J18.1 Lobar pneumonia, unspecified organism (principal); D72.829 Elevated white blood cell count, unspecified; R74.02 Elevation of levels of lactic acid dehydrogenase [LDH]; E66.9 Obesity, unspecified; Z68.42 Body mass index [BMI] 45.0-49.9, adult; Z91.030 Bee allergy status
CPT/HCPCS: 36415; 71045; 71260; 80053; 83605; 85025; 87040; 96361; 96374; 99284; 99285-25; A9270-GY; J0696; J3490; J7030; Q9967